=== PATIENT | female | born 1995 | race Caucasian/White ===

== ENCOUNTER → 2017-11-17 | Outpatient (REF) | payer SELFPAY ==
[2017-11-17 13:09] LABS: BASO % 0.4 % (0.0-1.0); EOS # 0.4 10^3/uL (0.0-0.50); HEMATOCRIT 39.7 % (36.0-47.0); HEMOGLOBIN 13.7 g/dl (12.0-16.0); IMMATURE GRANULOCYTE % 0.4 % (0-3.0); LYMPH # 1.7 10^3/uL (1.5-6.5); LYMPH % 30.5 % (24.0-44.0); MEAN CORPUSCULAR HEMOGLOBIN 33.3 pg (27.0-33.0); MEAN CORPUSCULAR HGB CONC 34.5 g/dl (32.0-36.5); MEAN CORPUSCULAR VOLUME 96.6 fl (80.0-96.0); MONO # 0.4 10^3/uL (0.0-0.8); MONO % 6.8 % (0.0-5.0); NEUTROPHILS # 3.1 10^3/uL (1.8-7.7); NEUTROPHILS % 54.9 % (36.0-66.0); PLATELET COUNT, AUTOMATED 178 10^3/uL (150-450); RED BLOOD COUNT 4.11 10^6/uL (4.00-5.40); RED CELL DISTRIBUTION WIDTH 11.9 % (11.5-14.5); WHITE BLOOD COUNT 5.6 10^3/uL (4.0-10.0)
[2017-11-17 13:28] LABS: TOTAL 25(OH) VITAMIN D 19.7 NG/ML (30.0-100.0)
[2017-11-17 13:29] LABS: ALBUMIN 4.4 GM/DL (3.2-5.2); ALBUMIN/GLOBULIN RATIO 1.33 (1.00-1.93); ALKALINE PHOSPHATASE 66 U/L (45-117); ALT/SGPT 14 U/L (12-78); ANION GAP 7 MEQ/L (8-16); AST/SGOT 12 U/L (7-37); BILIRUBIN,TOTAL 0.3 MG/DL (0.2-1.0); BLOOD UREA NITROGEN 11 MG/DL (7-18); CALCIUM LEVEL 8.9 MG/DL (8.5-10.1); CARBON DIOXIDE LEVEL 28 MEQ/L (21-32); CHLORIDE LEVEL 108 MEQ/L (98-107); CREATININE FOR GFR 0.81 MG/DL (0.55-1.30); GLUCOSE, FASTING 86 MG/DL (70-100); POTASSIUM SERUM 3.9 MEQ/L (3.5-5.1); SODIUM LEVEL 143 MEQ/L (136-145); TOTAL PROTEIN 7.7 GM/DL (6.4-8.2)
[2017-11-17 14:41] LABS: CHLAMYDIA DNA AMPLIFICATION NEGATIVE (NEGATIVE); GC DNA AMPLIFICATION NEGATIVE (NEGATIVE)
[2017-11-18 10:31] LABS: HIV 1&2 SCREEN CENTAUR NEGATIVE (NEGATIVE)
== END ==
LOC: M LAB REF 12:37
DX: Z13.9 Encounter for screening, unspecified (principal)

== ENCOUNTER → 2018-09-11 | Outpatient (CLI) | payer OTHER ==
[2018-09-11 10:36] LABS: HEMATOCRIT 31.9 % (36.0-47.0); HEMOGLOBIN 10.6 g/dl (12.0-15.5); MEAN CORPUSCULAR HEMOGLOBIN 32.5 pg (27.0-33.0); MEAN CORPUSCULAR HGB CONC 33.2 g/dl (32.0-36.5); MEAN CORPUSCULAR VOLUME 97.9 fl (80.0-96.0); PLATELET COUNT, AUTOMATED 146 10^3/uL (150-450); RED BLOOD COUNT 3.26 10^6/uL (4.00-5.40); WHITE BLOOD COUNT 11.6 10^3/uL (4.0-10.0)
== END ==
LOC: M LAB 08:29
PROVIDERS: ATTEND Obstetrics & Gynecology
DX: Z34.02 Encounter for supervision of normal first pregnancy, second trimester (principal)

== ENCOUNTER → 2018-10-05 | Outpatient (CLI) | payer OTHER, SELFPAY | LOC: M LAB 08:48 | PROVIDERS: ATTEND Obstetrics & Gynecology | DX: R73.02 Impaired glucose tolerance (oral) (principal) ==

== ENCOUNTER → 2018-10-11 | Outpatient (CLI) | payer OTHER, SELFPAY | LOC: M LAB 08:48 | PROVIDERS: ATTEND Obstetrics & Gynecology | DX: R73.02 Impaired glucose tolerance (oral) (principal) ==

== ENCOUNTER 2018-12-05 12:34 | Inpatient (IN) | payer OTHER ==
[2018-12-05] VITALS (25 sets, daily range): BP systolic 88–146; BP diastolic 50–92
[~2018-12-05] VITALS: Ht 152.4 cm; Wt 82.2 kg
[~2018-12-05 12:34] MED LIST: ZOFR4TAB14 PO; otc prenatal vit
[2018-12-05] MEDS ORDERED: LR 1,000 ML IV ONE (13:30)
[2018-12-05] MEDS ORDERED: LACTATED RINGER'S 1000 ML IV STA (17:32)
[2018-12-05] MEDS ORDERED: LR 1,000 ML IV SCH (17:32)
[2018-12-05 18:09] LABS: HEMATOCRIT 29.5 % (36.0-47.0); HEMOGLOBIN 9.4 g/dl (12.0-15.5); MEAN CORPUSCULAR HEMOGLOBIN 30.3 pg (27.0-33.0); MEAN CORPUSCULAR HGB CONC 31.9 g/dl (32.0-36.5); MEAN CORPUSCULAR VOLUME 95.2 fl (80.0-96.0); PLATELET COUNT, AUTOMATED 122 10^3/uL (150-450); WHITE BLOOD COUNT 10.2 10^3/uL (4.0-10.0)
[2018-12-05] MEDS ORDERED: PROMETHAZINE INJ 25 MG/ML VIAL (J2550) IV ONE (18:45)
[2018-12-05] MEDS ORDERED: BUTORPHANOL 2 MG/ML INJ (J0595) IV ONE (18:45)
[2018-12-05] MEDS ORDERED: OXYTOCIN DRIP 30 UNITS in APPROPRIATE DILUENT 1 EA IV SCH ×3 (19:15→22:15)
[2018-12-05] MEDS ORDERED: FENTANYL 2MCG/ML ROPIVACAINE 0.2% IN 0.9% NACL 100ML IVBAG As Ordered ONE (20:25)
[2018-12-05] MEDS ORDERED: diphenhydrAMINE INJ 50MG/ML VIAL (J1200) IV PRN (21:15)
[2018-12-05] MEDS ORDERED: NALOXONE INJ 0.4 MG/1 ML VIAL (J2310) IV PRN (21:15)
[2018-12-05] MEDS ORDERED: LACTATED RINGER'S 1000 ML IV PRN (21:15)
[2018-12-05] MEDS ORDERED: EPIDURAL/PCA KEYS XX PRN (21:15)
[2018-12-05] MEDS ORDERED: REFRIGERATOR IV KEYS XX PRN (21:15)
[2018-12-05] MEDS ORDERED: FENTANYL/ROPIVACAINE/NACL BAG 100 ML EPIDURAL SCH (21:15)
[2018-12-05] MEDS ORDERED: ONDANSETRON 4MG/2ML VIAL (J2405) IV PRN (21:15)
[2018-12-05] MEDS ORDERED: EPIDURAL COMMENT XX SCH (21:15)
[2018-12-05] MEDS ORDERED: ePHEDrine SULFATE 25 MG/5 ML(5MG/ML) SYRINGE IV PRN (21:15)
[2018-12-06] VITALS (13 sets, daily range): BP systolic 89–121; BP diastolic 51–74
[2018-12-06 04:44] LABS: CORD GAS ABE A -5.9; CORD GAS HCO3 A 22.5 MEQ/L; CORD GAS O2 SAT A 51.5 %; CORD GAS PCO2 A 54.1 mmHg; CORD GAS PH A 7.236 UNITS; CORD GAS PO2 A 25.7 mmHg; CORD GAS SBC A 18.5 MEQ/L; CORD GAS TCO2 A 24.1 MEQ/L
[2018-12-06 04:47] LABS: CORD GAS ABE V -4.5; CORD GAS HCO3 V 20.1 MEQ/L; CORD GAS O2 SAT V 63.2 %; CORD GAS PCO2 V 36.6 mmHg; CORD GAS PH V 7.358 UNITS; CORD GAS PO2 V 26.1 mmHg; CORD GAS SBC V 19.8 MEQ/L; CORD GAS TCO2 V 21.2 MEQ/L
[2018-12-06] MEDS ORDERED: OXYTOCIN DRIP 30 UNITS in APPROPRIATE DILUENT 1 EA IV SCH (04:55)
[2018-12-06] MEDS ORDERED: RHOGAM 300 MCG (1500 IU) INJ (J2790) IM SCH (05:00)
[2018-12-06] MEDS ORDERED: ANUSOL HC CREAM 30GM TOP PRN (05:00)
[2018-12-06] MEDS ORDERED: MEASLES,MUMPS,RUBELLA VACCINE INJ (MMR-II) (90707) SC SCH (05:00)
[2018-12-06] MEDS ORDERED: ACETAMINOPHEN 500 MG TAB PO PRN (05:00)
[2018-12-06] MEDS ORDERED: MOM 30ML SUSPENSION UDC PO PRN (05:00)
[2018-12-06] MEDS ORDERED: DIBUCAINE 1% OINTMENT 30GM TOP PRN (05:00)
[2018-12-06] MEDS ORDERED: METHYLERGONOVINE MALEATE 0.2 MG TAB PO PRN (05:00)
[2018-12-06] MEDS: PRENATAL VITAMINS CHEWABLE TABLET PO SCH (08:43)
[2018-12-06] MEDS: IBUPROFEN 800 MG TAB PO PRN ×2 (08:43→17:59)
[2018-12-06] MEDS: DOCUSATE SODIUM 100 MG CAP PO SCH ×2 (08:43→21:42)
--- NOTE | 2018-12-06 10:42 | HPE ---
DATE OF ADMISSION: 12/05/2018 This is a 22-year-old female 1, para 0 with an estimated date of confinement (EDC) of 12/03/2018, estimated gestational age 40-2/7 weeks gestation who is being admitted with complaints of contractions. She was seen and evaluated in labor and delivered and monitored for approximately 2 hours and found to have advanced dilatation. At this point, a decision was made for admission. Her record was reviewed, which was essentially unremarkable. laboratories: Blood type is O+, rubella immune, hepatitis negative, HIV negative, GC and chlamydia negative, 1-hour sugar testing was within normal limits. Her GBS is negative. PAST MEDICAL HISTORY: Denies. PAST SURGICAL HISTORY: Denies. SOCIAL HISTORY: The patient denies any alcohol. She is a former smoker. Denies any drug use. FAMILY HISTORY: Significant for diabetes. MEDICATIONS: - vitamin ALLERGIES: No known drug allergy. PHYSICAL EXAMINATION: Normal-appearing female in no acute distress. Abdomen: Soft, nontender, nondistended. Extremities: No clubbing, cyanosis or edema. Vaginal exam 2-3 cm dilated, 80% effaced. The fetus is at -3 station and in a vertex position. Tracing reviewed, category 1 tracing. Contractions every 2-3 minutes. ASSESSMENT: Intrauterine at 40-2/7 weeks gestation, in early labor. PLAN: 1. Admit to labor and delivery. 2. Routine labs sent. 3. Pain management discussed. The patient opted for an epidural. 4. We will continue to monitor. Anticipate delivery.
--- NOTE | 2018-12-06 16:11 | DN ---
DATE: 12/06/2018 Teresa is a 22-year-old female, 1, para 0, who was admitted at 40-2/7 weeks gestation in labor. She underwent artificial rupture of membrane followed by Pitocin augmentation. Progressed to fully dilated, then pushed and delivered a live female in left occiput anterior position over an intact perineum. scores 8 and 9, weight 7 pounds 9 ounces. Placenta delivered spontaneously intact. A 3-vessel cord. Perineum, vagina, and cervix inspected. No laceration noted. Estimated blood loss 250 mL. Both mother and baby in stable condition.
[2018-12-07 06:48] VITALS: BP 105/57
[2018-12-07] MEDS: PRENATAL VITAMINS CHEWABLE TABLET PO SCH (08:26)
[2018-12-07] MEDS: DOCUSATE SODIUM 100 MG CAP PO SCH ×2 (08:26→20:17)
[2018-12-07] MEDS ORDERED: INFLUENZA QUADRIVALENT PF VACCINE 0.5ML SYRINGE (90686) IM ONE (09:00)
[2018-12-07 18:11] VITALS: BP 109/61
[2018-12-08 06:00] VITALS: BP 108/54
[2018-12-08] MEDS: DOCUSATE SODIUM 100 MG CAP PO SCH (08:18)
[2018-12-08] MEDS: PRENATAL VITAMINS CHEWABLE TABLET PO SCH (08:18)
[2018-12-08] MEDS ORDERED: IBUP-1114 PO (08:29)
[2018-12-08] MEDS ORDERED: MAPA500T2 PO (08:29)
== END 2018-12-08 13:00 | disposition home or self-care (01) | DRG 560 ==
LOC: M LDO 12:34 → M LDI 17:34 → MERGE 17:34 → M OBS 12-06 08:43
PROVIDERS: ADMIT Obstetrics & Gynecology; ATTEND Obstetrics & Gynecology
PROC: 10E0XZZ Delivery of Products of Conception, External Approach (ICD-10-PCS; principal; 2018-12-06)
PROC: 10907ZC Drainage of Amniotic Fluid, Therapeutic from Products of Conception, Via Natural or Artificial Opening (ICD-10-PCS; 2018-12-07)
DX: O48.0 Post-term pregnancy (principal); Z3A.40 40 weeks gestation of pregnancy; Z37.0 Single live birth

== ENCOUNTER 2019-07-31 21:13 | Emergency (ER) | payer OTHER ==
[~2019-07-31] VITALS: Ht 152.4 cm; Wt 61.8 kg
[2019-07-31 21:13] VITALS: BP 115/56
[~2019-07-31 21:13] MED LIST changes: +IBUP-1114 PO; +MAPA500T2 PO
== END 2019-07-31 23:04 | disposition home or self-care (01) ==
LOC: M ED 21:13
DX: T19.2XXA Foreign body in vulva and vagina, initial encounter (principal); X58.XXXA Exposure to other specified factors, initial encounter; Y92.89 Other specified places as the place of occurrence of the external cause; F17.200 Nicotine dependence, unspecified, uncomplicated

== ENCOUNTER 2019-11-14 17:18 | Emergency (ER) | payer OTHER ==
[~2019-11-14] VITALS: Ht 152.4 cm; Wt 69.3 kg
[2019-11-14] MEDS ORDERED: KETOROLAC 60 MG/2 ML VIAL (J1885) IM ONE (18:00)
[2019-11-14] MEDS ORDERED: methocarbamoL 500 MG TAB PO ONE (18:00)
[2019-11-14] MEDS ORDERED: KETO10TAB PO (19:00)
[2019-11-14] MEDS ORDERED: ROBA750T4 PO (19:00)
[2019-11-14 19:05] VITALS: BP 129/75
== END 2019-11-14 19:08 | disposition home or self-care (01) ==
LOC: M ED 17:18
DX: M62.830 Muscle spasm of back (principal); F17.200 Nicotine dependence, unspecified, uncomplicated
CPT/HCPCS: 96372; 99283; J1885

== ENCOUNTER 2020-05-06 11:37 | Inpatient (IN) | payer OTHER ==
[~2020-05-06 11:37] MED LIST changes: +KETO10TAB PO; +ROBA750T4 PO
[2020-05-06] MEDS ORDERED: ACETAMINOPHEN 500 MG TAB As Ordered ONE (11:52)
[2020-05-06] MEDS ORDERED: UNASYN 3 GM VIAL As Ordered ONE (12:02)
[2020-05-06] MEDS ORDERED: ISOVUE-370 76% 100ML VIAL As Ordered ONE (13:17)
[2020-05-06] MEDS ORDERED: KETOROLAC 30 MG/ML 1ML VIAL As Ordered ONE (14:49)
[2020-05-06] MEDS ORDERED: dexameTHASONE 4 MG/ML 1ML VIAL (J1100 PER 1MG) As Ordered ONE ×2 (14:50→19:23)
[2020-05-06] MEDS ORDERED: LIDOCAINE 2% W/ EPINEPHRINE 1.7 ML DENTAL INJ As Ordered ONE (18:19)
[2020-05-06] MEDS ORDERED: propofoL 200 MG/20 ML VIAL As Ordered ONE (18:26)
[2020-05-06] MEDS ORDERED: MIDAZOLAM INJ 2MG/2ML VIAL (J2250 PER 1MG) As Ordered ONE (18:26)
[2020-05-06] MEDS ORDERED: LIDOCAINE 2% 100MG/5ML SDV (FOR ANES.) As Ordered ONE (18:26)
[2020-05-06] MEDS ORDERED: ROCURONIUM BROMIDE 50 MG/5 ML VIAL As Ordered ONE (18:26)
[2020-05-06] MEDS ORDERED: fentaNYL 250 MCG/5 ML INJECTION (J3010) As Ordered ONE (18:26)
[2020-05-06] MEDS ORDERED: OXYMETAZOLINE 0.05% NASAL SPRAY (AFRIN) As Ordered ONE (18:33)
[2020-05-06] MEDS ORDERED: LACRILUBE (AKWA TEARS) OPHTH OINT 3.5 GM As Ordered ONE (18:41)
[2020-05-06] MEDS ORDERED: UNASYN 1.5 GM VIAL As Ordered ONE (19:09)
[2020-05-06] MEDS ORDERED: ONDANSETRON 4MG/2ML VIAL As Ordered ONE (19:23)
[2020-05-06] MEDS ORDERED: SUGAMMADEX SODIUM 500 MG/5 ML VIAL (BRIDION) As Ordered ONE (19:23)
[2020-05-06] MEDS ORDERED: KETOROLAC 60MG 2ML VIAL As Ordered ONE (19:23)
[2020-05-06] MEDS ORDERED: ACETAMINOPHEN 1000MG 100ML IV BTL (OFIRMEV) (J0131 PER 10MG) As Ordered ONE (19:25)
[2020-05-06] MEDS ORDERED: IBUPROFEN 800 MG TAB As Ordered ONE (20:54)
[2020-05-06] MEDS ORDERED: NORCO, ANEXSIA 5/325MG TABLET (HYDROcodone/ACETAMINOPHEN) As Ordered ONE (20:54)
[2020-06-21 10:24] LABS: BASO % 0.1 % (0.0-1.0); EOS % 0.3 % (0.0-3.0); HEMATOCRIT 41.2 % (36.0-47.0); HEMOGLOBIN 13.6 g/dl (12.0-15.5); LYMPH # 1.4 10^3/uL (1.5-5.0); LYMPH % 10.2 % (24.0-44.0); MEAN CORPUSCULAR HEMOGLOBIN 32.4 pg (27.0-33.0); MEAN CORPUSCULAR VOLUME 98.1 fl (80.0-96.0); MONO # 0.7 10^3/uL (0.0-0.8); MONO % 5.2 % (0.0-5.0); NEUTROPHILS # 11.4 10^3/uL (1.5-8.5); NEUTROPHILS % 83.9 % (36.0-66.0); PLATELET COUNT, AUTOMATED 194 10^3/uL (150-450); WHITE BLOOD COUNT 13.6 10^3/uL (4.0-10.0)
[2020-06-21 10:34] LABS: ERYTHROCYTE SEDIMENTATION RATE 13 mm/hr (0-20)
--- NOTE | 2020-07-03 11:27 | RO ---
DATE OF OPERATION: 05/06/2020 PREOPERATIVE DIAGNOSIS: Left buccal space abscess, partially erupted and malpositioned #17, subgingival caries and abscess #18. POSTOPERATIVE DIAGNOSIS: Status post the above. PROCEDURE: Incision and drainage, left buccal space abscess, extraction of teeth #17 and 18. SURGEON: Darío George DMD MD ASSISTANTS: None. ANESTHESIA: General endotracheal anesthesia via nasal JOHN. SPECIMENS: Gram stain, aerobes, anaerobes, cultures and sensitivity were sent out plus teeth for gross only. INDICATIONS FOR SURGERY: Hue is a pleasant, 24-year-old female that saw her dentist last Ezra complaining of pain and swelling in her left face. She was placed on the antibiotic pills and was instructed to follow up with an oral surgeon. Today she developed significantly worsening swelling, dysphagia and pain. She reported to the emergency room for further evaluation and management. On clinical examination, she has obvious left facial swelling mainly in the cheek. Her neck is soft with no induration. Her swelling is also very soft with no skin erythema. However, there is significant tenderness to palpation. Her maximal intercisal opening is over 45 mm with no pain. Her oral examination reveals posterior left mandibular vestibular swelling that is very tender to palpation with purulent material expressed on palpation from the sulcus of teeth 18 and barely dehisced tooth #17. She has an erupted wisdom tooth #16. Her floor of the mouth is nonelevated and nontender to palpation. There is no airway compromise. Her CT scan shows that there is no fluid collection. However, there is a significant cellulitis in the perimandibular area. I was not able to get a panoramic x-ray as that machine is down. Her white count on admission was 13,000. She is afebrile with no acute distress. A complete history and physical was performed and is in the patients chart. An informed consent was explained to the patient in detail and was signed. I recommended extraction of teeth #16, 17 and 18 with an incision and drainage in the operating room. The patient agreed with the exception of removal of tooth #16 as she does not want that tooth removed. DESCRIPTION OF PROCEDURE: The patient was taken back to the operating room. She was laid supine on the operating room table. Ulnar nerve protectors were placed. Noninvasive cardiac monitors were applied. At that point, the patient underwent general anesthesia and was intubated with a nasal JOHN. She was prepped and draped in the usual sterile fashion. A timeout procedure was performed to identify the patient, the procedure and any other precautions. A moist throat pack was inserted in the patients oropharynx followed by the administration of 2% lidocaine with 1:100,000 epinephrine as local infiltrations and blocks. At this point, a 15 blade was used to make a sulcal incision starting at site #19 and extended proximally into the sulcus of 18 and at that point at the distal of 18, a hockey stick buccal extension was released. Subperiosteal dissection was performed all the way down to the inferior border of the mandible with an abundant amount of purulent material that was evacuated and multiple samples for microbiology were sent out. At this point once all the purulent material was evacuated, a Surgitome was then used to remove buccal bone from site #18 and 17. #17 was noted to have a distal angular position. That was sectioned in multiple segments and removed. Extraction was difficult, however with no complications reported. The inferior alveolar nerve was not noted. The lingual cortex was intact. At this point, #18 was also sectioned and removed with lingual cortex intact and inferior alveolar nerve that was not noted. The sockets were copiously irrigated and suctioned. Further irrigation and curettage in the subperiosteal area was performed all the way down to the inferior border of the mandible. Inspection of tooth #19 reveals the tooth is in very good condition and was left intact. At this point, the flap was then closed with 3-0 Chromic sutures. The oral cavity was irrigated and suctioned. The throat pack was removed. The patient was awakened from general anesthesia and taken back to the PACU. COMPLICATIONS: None to mention at time of surgery. ESTIMATED BLOOD LOSS: 20 mL DRAINS: There were no drains placed. MTDD
[2020-07-25 08:48] LABS: ALBUMIN 4.2 GM/DL (3.2-5.2); ALT/SGPT 18 U/L (12-78); BILIRUBIN,DIRECT 0.3 MG/DL (0.0-0.2); BLOOD UREA NITROGEN 7 MG/DL (7-18); CARBON DIOXIDE LEVEL 27 MEQ/L (21-32); CHLORIDE LEVEL 106 MEQ/L (98-107); CREATININE FOR GFR 0.73 MG/DL (0.55-1.30); GLOMERULAR FILTRATION RATE > 60.0 (>60); GLUCOSE, FASTING 88 MG/DL (70-100); POTASSIUM SERUM 3.9 MEQ/L (3.5-5.1); SODIUM LEVEL 140 MEQ/L (136-145); TOTAL PROTEIN 7.7 GM/DL (6.4-8.2)
[2020-07-25 08:49] LABS: HCG, SERUM QUALITATIVE NEGATIVE (NEGATIVE)
== END 2020-05-06 20:00 | disposition home or self-care (01) | DRG 98 ==
LOC: M ED 11:37 → M MS5PR 16:25
PROVIDERS: ADMIT Internal Medicine Nephrology; ATTEND Internal Medicine Nephrology
PROC: 0C940ZZ Drainage of Buccal Mucosa, Open Approach (ICD-10-PCS; principal; 2020-05-06)
PROC: 0CTX0Z0 Resection of Lower Tooth, Single, Open Approach (ICD-10-PCS; 2020-05-06)
DX: K12.2 Cellulitis and abscess of mouth (principal)

== ENCOUNTER 2021-08-11 20:58 | Emergency (ER) | payer OTHER ==
[~2021-08-11] VITALS: Ht 157.5 cm; Wt 72.8 kg
[2021-08-11 21:00] VITALS: BP 107/69
--- OUTSIDE RECORDS SUMMARY | 2021-08-11 21:05 | CCD ---
Author Author [facility] Organization [facility] Address Unknown Phone Unavailable Support Name Relationship Address Phone NHUNG Next Of Kin [address] [place] [address] Lindsey Cox Next Of Kin [address] [place] [address] KIKE JHAVERI Next Of Kin [address] [place] [address] UE Next Of Kin Unknown Unavailable JIMENEZ JHAVERI Next Of Kin [address] [place] [address] ST Next Of Kin Unknown Unavailable KATEI JHAVERI Next Of Kin [address] [place] [address] ERON JHAVERI Next Of Kin [address] [place] [address] Re-disclosure Warning The records that you are about to access may contain information from federally-assisted alcohol or drug abuse programs. If such information is present, then the following federally mandated warning applies: This information has been disclosed to you from records protected by federal confidentiality rules (42 CFR part 2). The federal rules prohibit you from making any further disclosure of this information unless further disclosure is expressly permitted by the written consent of the person to whom it pertains or as otherwise permitted by 42 CFR part 2. A general authorization for the release of medical or other information is NOT sufficient for this purpose. The Federal rules restrict any use of the information to criminally investigate or prosecute any alcohol or drug abuse patient.The records that you are about to access may contain highly sensitive health information, the redisclosure of which is protected by Article 27-F of the [facility] Public Health law. If you continue you may have access to information: Regarding HIV / AIDS; Provided by facilities licensed or operated by the [facility] Office of Mental Health; or Provided by the [facility] Office for People With Developmental Disabilities. If such information is present, then the following [facility] mandated warning applies: This information has been disclosed to you from confidential records which are protected by state law. State law prohibits you from making any further disclosure of this information without the specific written consent of the person to whom it pertains, or as otherwise permitted by law. Any unauthorized further disclosure in violation of state law may result in a fine or intermediate sentence or both. A general authorization for the release of medical or other information is NOT sufficient authorization for further disc losure. Medications No Information Insurance Providers Payer name Policy type / Coverage type Policy ID Covered green party ID Covered green party's relationship to nunez Policy Nunez Plan Information Managed Care - [facility] Community Plan P [id number] S [id number] Medicaid S [id number] S [id number] SELF PAY ONLY [id number] SP [id number] [facility] COMMUNITY PLAN [facility] [id number] SP [id number] SELF PAY ONLY [id number] SP [id number] Medicaid S UNAVAILABLE S UNAVAILA BLE [facility] COMMUNITY PLAN [facility] [id number] SP [id number] Problems, Conditions, and Diagnoses No Information Surgeries/Procedures No Information Results No Information Social History No Information
[2021-08-11] MEDS ORDERED: APAP325T4 PO (21:10)
[2021-08-11] MEDS ORDERED: DIPH50CA PO (21:10)
--- OUTSIDE RECORDS SUMMARY | 2021-08-11 23:27 | CCD ---
Author Author [facility] Organization [facility] Address Unknown Phone Unavailable Support Name Relationship Address Phone NHUNG Next Of Kin [address] [place] [address] Lindsey Cox Next Of Kin [address] [place] [address] KIKE JHAVERI Next Of Kin [address] [place] [address] UE Next Of Kin Unknown Unavailable JIMENEZ JHAVERI Next Of Kin [address] [place] [address] ST Next Of Kin Unknown Unavailable KATIE JHAVERI Next Of Kin [address] [place] [address] ERON JHAVERI Next Of Kin [address] [place] [address] Re-disclosure Warning The records that you are [...] is protected by Article 27-F of the [facility] Public Health law. If you continue you may have access to information: Regarding HIV / AIDS; Provided by facilities licensed or operated by the [facility] Office of Mental Health; or Provided by the [facility] Office for People With Developmental Disabilities. If such information is present, then the following [facility] mandated warning applies: This information has been [...] law may result in a fine or [place] [facility] sentence or both. A general authorization for the release of medical or other information is NOT sufficient authorization for further disc losure. Medications No Information Insurance Providers Payer name Policy type / Coverage type Policy ID Covered constitution party ID Covered constitution party's relationship to nunez Policy Nunez Plan Information Managed Care - [facility] Community Plan P [id number] S [id number] Medicaid S [id number] S [id number] SELF PAY ONLY [id number] SP [id number] COUNTS INCLUDE 234 BEDS AT THE [facility] COMMUNITY PLAN [facility] [id number] SP [id number] SELF PAY ONLY [id number] SP [id number] Medicaid S UNAVAILABLE S UNAVAILA BLE COUNTS INCLUDE 234 BEDS AT THE [facility] COMMUNITY PLAN [facility] [id number] SP [id number] Problems, Conditions, and Diagnoses No Information Surgeries/Procedures No Information Results No Information Social History No Information
== END 2021-08-11 23:30 | disposition left against medical advice (07) ==
LOC: M ED 20:58
DX: Z53.29 Procedure and treatment not carried out because of patient's decision for other reasons (principal)

== ENCOUNTER 2023-03-09 21:15 | Emergency (ER) | payer OTHER ==
[~2023-03-09] VITALS: Ht 152.4 cm; Wt 65.9 kg
[~2023-03-09 21:15] MED LIST changes: +APAP325T4 PO; +DIPH50CA PO
[2023-03-10] MEDS ORDERED: FLUORESCEIN OPHTH 1MG STRIP OU ONE (00:55)
[2023-03-10] MEDS ORDERED: PROPARACAINE 0.5% OPHTH SOL 15ML OU ONE (00:55)
[2023-03-10] MEDS ORDERED: CIPROFLOXACIN 0.3% OPHTH SOLN 2.5ML OD ONE (01:30)
[2023-03-10] MEDS ORDERED: CIPR0.3S37 OD (01:31)
[2023-03-10 01:39] VITALS: BP 128/76; TEMP 97.8; O2SAT 99
== END 2023-03-10 01:40 | disposition home or self-care (01) ==
LOC: M ED 21:15
DX: H57.11 Ocular pain, right eye (principal); T15.91XA Foreign body on external eye, part unspecified, right eye, initial encounter; Y92.89 Other specified places as the place of occurrence of the external cause; Y93.89 Activity, other specified; Y99.0 Civilian activity done for income or pay

== ENCOUNTER 2025-01-14 20:52 | Emergency (ER) | payer OTHER ==
[~2025-01-14] VITALS: Ht 152.4 cm; Wt 77.4 kg
[~2025-01-14 20:52] MED LIST changes: +CIPR0.3S37 OD; +IVER1TAB
[2025-01-14] MEDS: NS (Normal Saline) 0.9% 1,000 ML IV ONE (22:12)
[2025-01-14 22:16] LABS: BASO % 0.3 % (0.0-1.0); EOS # 0.2 10^3/uL (0.0-0.5); EOS % 2.2 % (0.0-3.0); HEMATOCRIT 36.6 % (36.0-47.0); HEMOGLOBIN 12.6 g/dl (12.0-15.5); LYMPH # 2.6 10^3/uL (1.5-5.0); LYMPH % 27.5 % (24.0-44.0); MEAN CORPUSCULAR HEMOGLOBIN 32.7 pg (27.0-33.0); MEAN CORPUSCULAR HGB CONC 34.4 g/dl (32.0-36.5); MEAN CORPUSCULAR VOLUME 95.1 fl (80.0-96.0); MONO # 0.5 10^3/uL (0.0-0.8); MONO % 5.8 % (2.0-8.0); NEUTROPHILS % 63.9 % (36.0-66.0); PLATELET COUNT, AUTOMATED 184 10^3/uL (150-450); RED BLOOD COUNT 3.85 10^6/uL (4.00-5.40); WHITE BLOOD COUNT 9.4 10^3/uL (4.0-10.0)
[2025-01-14] MEDS: KETOROLAC 30 MG/ML 1ML VIAL IV ONE (22:17)
[2025-01-14] MEDS: ACETAMINOPHEN *IV* 1,000 MG in IV 1 EA IV ONE (22:18)
[2025-01-14 23:00] LABS: BLOOD UREA NITROGEN 16 MG/DL (9-23); CALCIUM LEVEL 8.8 MG/DL (8.5-10.1); CARBON DIOXIDE LEVEL 26 MMOL/L (20-31); CHLORIDE LEVEL 105 MMOL/L (98-107); CREATININE FOR GFR 0.83 MG/DL (0.55-1.30); GLOMERULAR FILTRATION RATE > 90.0 (>60); GLUCOSE, FASTING 87 MG/DL (60-100); POTASSIUM SERUM 3.9 MMOL/L (3.5-5.1); SODIUM LEVEL 139 MMOL/L (136-145)
[2025-01-14] MEDS: MAG SULF 1GM/100ML (MAG RUN) 1 GM in IV 1 EA IV ONE (23:09)
[2025-01-14 23:16] LABS: HCG, SERUM QUALITATIVE NEGATIVE (NEGATIVE)
[2025-01-14] MEDS ORDERED: ISOVUE-370 76% 100ML VIAL As Ordered ONE (23:17)
[2025-01-15 00:42] LABS: CK-MB VALUE MASS < 1.0 NG/ML (<3.6)
[2025-01-15 00:46] LABS: THYROID STIMULATING HORMONE 1.207 uIU/ML (0.55-4.78)
[2025-01-15] MEDS: NS (Normal Saline) 0.9% 1,000 ML IV ONE (00:50)
[2025-01-15 01:02] LABS: CPK CREATINE PHOSPHOKINASE 109 U/L (34-145); MB/CK RELATIVE INDEX 0.91 (< OR =4)
[2025-01-15 02:28] VITALS: BP 106/51; TEMP 97.8; O2SAT 94
== END 2025-01-15 02:30 | disposition home or self-care (01) ==
LOC: M ED 20:52
DX: R20.2 Paresthesia of skin (principal); G43.909 Migraine, unspecified, not intractable, without status migrainosus; R00.1 Bradycardia, unspecified; Z88.8 Allergy status to other drugs, medicaments and biological substances; Z79.899 Other long term (current) drug therapy
CPT/HCPCS: 70450; 70496; 70498; 80048; 82550; 82553; 83735; 84443; 84484; 84703; 85025; 87486; 87581; 87633; 87798; 93005; 96365; 96366; 96375; 99284; J0131; J1100; J1885; J3475; Q9967